=== PATIENT | female | born 1990 | race Caucasian/White ===

== ENCOUNTER 2016-10-05 21:12 | Emergency (ER) | payer OTHER ==
[~2016-10-05] VITALS: Ht 157.5 cm; Wt 135.6 kg
[~2016-10-05 21:12] MED LIST: ENDOCET 5-3251 EACH PO; IBUPROFEN800 MG PO; NAPROSYN500 MG PO; NOHOMEMEDS; PEN-VEE K,VEET500 MG PO; PERCOCET 5/31 TABLET PO; PRENATAL TABLE1 EAC3 PO; ULTRAM50 MG PO
[2016-10-05] MEDS ORDERED: NORCO 5/3251 TABLET PO (22:12)
[2016-10-05] MEDS ORDERED: PEN-VEE K,VEET500 MG PO (22:12)
[2016-10-05 22:25] VITALS: BP 140/87
== END 2016-10-05 22:26 | disposition home or self-care (01) ==
LOC: EME 21:12
DX: K08.89 Other specified disorders of teeth and supporting structures (principal); K02.9 Dental caries, unspecified; F17.200 Nicotine dependence, unspecified, uncomplicated
CPT/HCPCS: 99281; 99283

== ENCOUNTER 2017-05-08 20:34 | Emergency (ER) | payer OTHER ==
[~2017-05-08 20:34] MED LIST changes: +NORCO 5/3251 TABLET PO
[2017-05-08 20:54] LABS: BASOPHIL COUNT 0.1 K/uL (0-0.1); EOSINOPHIL (%) 1.9 % (0-5); EOSINOPHIL COUNT 0.3 K/uL (0-0.3); HEMATOCRIT 41.6 % (36.0-46.0); IMMATURE GRANULOCYTE (%) 1.5 % (0.0-0.7); IMMATURE GRANULOCYTE COUNT 0.2 K/uL; INSTRUMENT ABS NEUTROPHIL CT 10.8 K/uL; LYMPHOCYTE COUNT 2.4 K/uL (1.0-2.8); MCH 26.9 PG (29.0-34.0); MCHC 32.5 G/DL (30.0-36.0); MEAN PLAT.VOLUME 10.3 uM^3 (9.5-12.4); MONOCYTE (%) 3.8 % (3-12); MONOCYTE COUNT 0.5 K/uL (0-0.8); NEUTROPHIL (%) 75.7 % (45-76); NEUTROPHIL COUNT 10.8 K/uL (1.8-6.4); PLATELET COUNT 267 K/uL (156-360); RBC DIS.WIDTH-CV 13.1 % (11.8-14.6); RBC DIS.WIDTH-SD 39.6 % (39-53); RED BLOOD COUNT 5.01 M/uL (3.80-5.20); WHITE BLOOD COUNT 14.2 K/uL (4.1-10.2)
[2017-05-08 21:03] LABS: AMYLASE 48 IU/L (1-118); CHLORIDE 109 mEq/L (99-109); POTASSIUM 3.3 mEq/L (3.7-5.4); SODIUM 142 mEq/L (136-147)
[2017-05-08 21:05] LABS: GLUCOSE 100 mg/dL (70-99)
[2017-05-08 21:06] LABS: ANION GAP 11 MEQ/L (2-14)
[2017-05-08 21:08] LABS: SERUM ETHYL ALCOHOL < 10 mg/dL
[2017-05-08 21:09] LABS: GFR ESTIMATE (CALCULATED) > 59 mL/min/
[2017-05-08 21:10] LABS: UREA NITROGEN (BUN) 11 mg/dL (9-23)
[2017-05-08 21:12] LABS: LIPASE 87 U/L (1.0-51.0)
[2017-05-08 21:18] LABS: QUANTITATIVE HCG < 4.0 MIU/ML
[2017-05-08 22:38] LABS: ADD MIUA? YES; BILIRUBIN NEGATIVE; BLOOD LARGE; COLOR YELLOW ((YELLOW)); GLUCOSE (STRIP) NEGATIVE; KETONES NEGATIVE; LEUKOCYTES TRACE; NITRITE NEGATIVE; PROTEIN (STRIP) 30; UROBILINOGEN 0.2 MG/DL (0.2-1.0)
[2017-05-08 22:51] LABS: AMPHETAMINE NEGATIVE (500 ng/mL); BARBITURATES NEGATIVE (200 ng/mL); BENZODIAZEPINES NEGATIVE (150 ng/mL); COCAINE NEGATIVE (150 ng/mL); INTERNAL CONTROLS VALID? YES; METHADONE NEGATIVE (200 ng/mL); METHAMPHETAMINE NEGATIVE (500 ng/mL); OPIATES (MORPHINE) PRESUMPTIVE POSITIVE (100 ng/mL); OXYCODONE NEGATIVE (100 ng/mL); PHENCYCLIDINE NEGATIVE (25 ng/mL); PROPOXYPHENE NEGATIVE (300 ng/mL); THC CANNABINOIDS PRESUMPTIVE POSITIVE (50 ng/mL); TRICYCLIC ANTIDEPRESSANTS NEGATIVE (300 ng/mL)
[2017-05-08 22:52] LABS: ADD MEDTOX COMMENT Y
== END 2017-05-09 00:14 | disposition home or self-care (01) ==
LOC: TRA 20:34
PROVIDERS: Emergency Medicine
DX: S06.0X0A Concussion without loss of consciousness, initial encounter (principal); V47.1XXA Car passenger injured in collision with fixed or stationary object in nontraffic accident, initial encounter; M25.522 Pain in left elbow; M25.562 Pain in left knee; R07.89 Other chest pain; R10.10 Upper abdominal pain, unspecified; M54.6 Pain in thoracic spine
CPT/HCPCS: 70450; 70486; 71010; 71260; 72125; 72129; 72132; 73070; 73130; 73552; 73560; 74177; 80048; 81003; 82150; 83690; 84702; 84999; 85025; 86850; 86870; 86900; 86901; 86920; 99281; 99285; G0480; J2270